=== PATIENT | female | born 1940 | race Caucasian/White ===

== ENCOUNTER 2016-12-14 13:07 | Inpatient (IN) | payer MEDICARE, OTHER ==
[~2016-12-14 13:07] MED LIST: BAYER81 MG PO; CALCIUM; CALCIUM 600 W/V1 TAB; CALCIUM 600 W/V1 TAB PO; CARDIZEM LA240 MG; COATED ASPIRIN325 M1 PO; COMPAZINE10 M; DETROL LA4 MG PO; DILAUDID2 MG PO; ECOTRIN325 MG; FOLIC ACID1 MG PO; FOSAMAX70 MG; FOSAMAX70 MG PO; H PO; HYDROCHLOROTHIA25 MG PO; KEPPRA500 M2 PO; LASIX20 MG PO; LEVAQUIN250 MG PO; LISINOPRIL10 MG PO; LOPRESSOR25 MG/TA7 PO; LOW-DOSE ASPIRI81 MG PO; MAGIC MOUTHWASH; MIRALAX17 G1 PO; MULTIVITAMIN1 CAP; MULTIVITAMIN1 TAB PO; NEURONTIN600 MG PO; NEXIUM40 MG PO; NOLVADEX10 MG PO; NORCO 5/325 TAB1 TAB PO; NORCO 7.5/325 T1 TAB; NORCO 7.5/3251 TAB PO; OS-CAL 500500 MG/TA1 PO; PERCOCET 5/3251 TAB PO; PRILOSEC40 MG; SKELAXIN800 MG; SODIUM BICARBO650 MG PO; TAMOXIFEN CITRA10 MG PO; TENORMIN50 MG PO; TYLENOL EXTRA500 MG; TYLENOL W/CODEI1 TAB; TYLENOL500 MG PO; UNKNOWN ANTIBIOTIC; VITAMIN D-32000 UNIT PO; ZOCOR10 MG PO; ZOFRAN ODT8 MG/TAB
[2016-12-14 13:45] LABS: BASO % 0.1 % (0-2); HCT-HEMATOCRIT 29.5 % (34.0-49.0); HGB-HEMOGLOBIN 9.6 gm/dl (12.0-15.5); IMMATURE GRANULOCYTES ABSOLUTE 0.03 tho/cmm (0-0.03); IMMATURE GRANULOCYTES PERCENT 0.3 % (0-0.3); LYMPH % 15.2 % (20-45); LYMPH ABSOLUTE COUNT 1.5 tho/cmm (0.8-4.5); MCH (MEAN CORPUSCULAR HGB) 31.9 pg (28.0-32.0); MCHC MEAN CORPUSCULAR HGB CONC 32.5 % (32.0-36.0); MEAN PLATELET VOLUME 9.4 cmc (9.4-12.4); MONO % 4.6 % (0-12); MONOCYTE ABSOLUTE COUNT 0.5 tho/cmm (0.0-1.2); NEUTROPHILS % 79.8 % (40-80); PLATELET COUNT 217 tho/cmm (150-450); RED BLOOD COUNT 3.01 mil/cmm (4.00-5.20); RED CELL DISTRIBUTION WIDTH 14.1 % (12.4-16.4)
[2016-12-14 13:46] LABS: CARBON DIOXIDE-VENOUS 22 mmol/L (21-33); CREATININE 1.47 mg/dl (0.67-1.17); GLUCOSE 119 mg/dl (65-120); POTASSIUM 4.2 mmol/L (3.5-5.3); SODIUM 140 mmol/L (135-146); eGFR VALUE FOR BLACK 42 mL/Min
[2016-12-14] MEDS ORDERED: VITAMIN D32000 UNI2 PO (13:52)
[2016-12-14] MEDS ORDERED: CITRACAL + D M1 EAC1 PO (13:53)
[2016-12-14] MEDS ORDERED: CYMBALTA60 M1 PO (13:54)
[2016-12-14] MEDS ORDERED: TEARS NATURALE15 M1 OP (13:54)
[2016-12-14] MEDS ORDERED: ARIMIDEX1 M1 PO (13:54)
[2016-12-14] MEDS ORDERED: HYDROCHLOROTH12.5 M2 PO (13:55)
[2016-12-14] MEDS ORDERED: PRINIVIL10 M1 PO (13:55)
[2016-12-14 13:56] LABS: URINE BILIRUBIN NEGATIVE (NEG); URINE BLOOD NEGATIVE (NEG); URINE GLUCOSE (UA) NEGATIVE (NEG); URINE KETONE NEGATIVE (NEG); URINE LEUKOCYTE ESTERASE NEGATIVE (NEG); URINE NITRITE NEGATIVE (NEG)
[2016-12-14] MEDS ORDERED: VENTOLIN HFA18 G2 INH (13:56)
[2016-12-14] MEDS ORDERED: NEXIUM40 M1 PO (13:56)
[2016-12-14 13:57] LABS: URINE APPEARANCE CLEAR; URINE COLOR YELLOW; URINE SPECIFIC GRAVITY 1.014 (1.003-1.030)
[2016-12-14] MEDS ORDERED: KEPPRA500 M3 PO (13:57)
[2016-12-14] MEDS ORDERED: TOPROL XL25 M1 PO (13:58)
[2016-12-14] MEDS ORDERED: [UNRECOGNIZED DRUG - OTHER] PO (13:59)
[2016-12-14] MEDS ORDERED: ONE DAILY FOR1 EAC7 PO (13:59)
[2016-12-14] MEDS ORDERED: ASPIRIN EC81 MG PO (13:59)
[2016-12-14 14:00] LABS: URINE EPITHELIAL CELLS 0 /[HPF] (0-10); URINE PROT SULFOSALICYLIC ACID TRACE (NEG); URINE RBC 0 /[HPF] (0-5); URINE WBC 0 /[HPF] (0-5)
[2016-12-14] MEDS ORDERED: FORTEO2.4 M1 (14:00)
[2016-12-14] MEDS ORDERED: NEURONTIN300 M1 PO (14:01)
[2016-12-14] MEDS ORDERED: OMNIPRED10 M1 OP (14:01)
[2016-12-14 14:15] LABS: ALBUMIN 3.6 g/dl (3.5-5.0); ALKALINE PHOSPHATASE 66 U/L (33-138); ALT/SGPT 14 U/L (12-78); AST/SGOT 19 U/L (10-40); BILIRUBIN,TOTAL 0.6 mg/dl (0-1.5); BLOOD UREA NITROGEN 31 mg/dl (6-24); CALCIUM 9.1 mg/dl (8.5-10.5); CHLORIDE 109 mmol/l (96-110)
[2016-12-14 14:20] LABS: ANION GAP 13 mmol/L (0-20)
[2016-12-14] MEDS ORDERED: FOLIC ACID0.4 M1 PO (15:06)
[2016-12-14] MEDS ORDERED: ARANESP200 MCG/1 SC (15:06)
[2016-12-14] MEDS ORDERED: TYLENOL EXTRA500 M1 PO (15:12)
[2016-12-14] MEDS ORDERED: PROCRIT40000 UNIT SC (15:22)
[2016-12-14 16:52] LABS: PROCALCITONIN 0.11 ng/ml (0.05-0.09)
[2016-12-15 05:35] LABS: ANION GAP 14 mmol/L (0-20); BLOOD UREA NITROGEN 35 mg/dl (6-24); CALCIUM 8.6 mg/dl (8.5-10.5); CARBON DIOXIDE-VENOUS 23 mmol/L (22-32); CHLORIDE 109 mmol/l (96-110); CREATININE 1.59 mg/dl (0.50-1.10); GLUCOSE 88 mg/dL (70-110); POTASSIUM 4.2 mmol/L (3.7-5.1); SODIUM 142 mmol/L (135-145); eGFR VALUE FOR BLACK 38 mL/Min
[2016-12-15 07:13] LABS: BASO % 0.1 % (0-2); HCT-HEMATOCRIT 28.4 % (34.0-49.0); IMMATURE GRANULOCYTES ABSOLUTE 0.05 tho/cmm (0-0.03); IMMATURE GRANULOCYTES PERCENT 0.5 % (0-0.3); LYMPH % 23.3 % (20-45); LYMPH ABSOLUTE COUNT 2.3 tho/cmm (0.8-4.5); MCH (MEAN CORPUSCULAR HGB) 31.4 pg (28.0-32.0); MCHC MEAN CORPUSCULAR HGB CONC 31.7 % (32.0-36.0); MEAN PLATELET VOLUME 9.6 cmc (9.4-12.4); MONOCYTE ABSOLUTE COUNT 0.9 tho/cmm (0.0-1.2); NEUTROPHIL ABSOLUTE COUNT 6.5 tho/cmm (1.6-8.0); NEUTROPHIL-AUTOMATED 6.5 tho/cmm (1.6-8.0); NEUTROPHILS % 67.1 % (40-80); PLATELET COUNT 212 tho/cmm (150-450); RED BLOOD COUNT 2.87 mil/cmm (4.00-5.20); RED CELL DISTRIBUTION WIDTH 14.1 % (12.4-16.4); WHITE BLOOD COUNT 9.8 tho/cmm (4.0-10.0)
[2016-12-15 07:21] LABS: PROCALCITONIN 0.13 ng/ml (0.05-0.09)
[2016-12-16 05:16] LABS: ANION GAP 12 mmol/L (0-20); BLOOD UREA NITROGEN 42 mg/dl (6-24); CALCIUM 8.7 mg/dl (8.5-10.5); CARBON DIOXIDE-VENOUS 26 mmol/L (22-32); CHLORIDE 112 mmol/l (96-110); CREATININE 1.87 mg/dl (0.50-1.10); GLUCOSE 91 mg/dL (70-110); POTASSIUM 4.1 mmol/L (3.7-5.1); SODIUM 146 mmol/L (135-145); eGFR VALUE FOR BLACK 32 mL/Min
[2016-12-16 05:29] LABS: PLATELET COUNT 182 tho/cmm (150-450)
[2016-12-18 04:50] LABS: HGB-HEMOGLOBIN 8.7 gm/dl (12.0-15.5); PLATELET COUNT 204 tho/cmm (150-450)
[2016-12-18 17:51] LABS: MAGNESIUM 1.7 mg/dl (1.3-2.6); PHOSPHOROUS 2.9 mg/dl (2.5-4.9)
[2016-12-19] MEDS ORDERED: TYLENOL325 M2 PO (12:39)
[2016-12-19] MEDS ORDERED: BACITRACIN28.4 G2 TOP (12:43)
[2016-12-19] MEDS ORDERED: NORVASC5 M2 PO (12:45)
== END 2016-12-19 16:20 | disposition home health service (06) | DRG 57 ==
LOC: EDMED 13:07 → EMR2 17:18 → 5WD 19:09
PROVIDERS: Emergency Medicine; Hospitalist; Internal Medicine; Psychiatry & Neurology Neurology; ADMIT Family Medicine
PROC: 3E0F7GC Introduction of Other Therapeutic Substance into Respiratory Tract, Via Natural or Artificial Opening (ICD-10-PCS; principal; 2016-12-14)
PROC: 05HC33Z Insertion of Infusion Device into Left Basilic Vein, Percutaneous Approach (ICD-10-PCS; 2016-12-16)
PROC: B54NZZA Ultrasonography of Left Upper Extremity Veins, Guidance (ICD-10-PCS; 2016-12-16)
DX: G30.9 Alzheimer's disease, unspecified (principal); E86.0 Dehydration; N18.3 Chronic kidney disease, stage 3 (moderate); F02.80 Dementia in other diseases classified elsewhere, unspecified severity, without behavioral disturbance, psychotic disturbance, mood disturbance, and anxiety; E04.1 Nontoxic single thyroid nodule; E55.9 Vitamin D deficiency, unspecified; E78.5 Hyperlipidemia, unspecified; G40.909 Epilepsy, unspecified, not intractable, without status epilepticus; I12.9 Hypertensive chronic kidney disease with stage 1 through stage 4 chronic kidney disease, or unspecified chronic kidney disease; K21.9 Gastro-esophageal reflux disease without esophagitis; K52.9 Noninfective gastroenteritis and colitis, unspecified; M54.9 Dorsalgia, unspecified; M81.0 Age-related osteoporosis without current pathological fracture; R29.6 Repeated falls; S61.502A Unspecified open wound of left wrist, initial encounter; Z51.5 Encounter for palliative care
CPT/HCPCS: C1751; J1630; J1650; J1956; J3370; J7030; P9612

== ENCOUNTER 2017-03-23 10:14 | Emergency (ER) | payer MEDICARE, OTHER ==
[~2017-03-23 10:14] MED LIST changes: +ARANESP200 MCG/1 SC; +ARIMIDEX1 M1 PO; +ASPIRIN EC81 MG PO; +BACITRACIN28.4 G2 TOP; +CITRACAL + D M1 EAC1 PO; +CYMBALTA60 M1 PO; +FOLIC ACID0.4 M1 PO; +FORTEO2.4 M1; +HYDROCHLOROTH12.5 M2 PO; +KEPPRA500 M3 PO; +NEURONTIN300 M1 PO; +NEXIUM40 M1 PO; +NORVASC5 M2 PO; +OMNIPRED10 M1 OP; +ONE DAILY FOR1 EAC7 PO; +PRINIVIL10 M1 PO; +PROCRIT40000 UNIT SC; +TEARS NATURALE15 M1 OP; +TOPROL XL25 M1 PO; +TYLENOL EXTRA500 M1 PO; +TYLENOL325 M2 PO; +VENTOLIN HFA18 G2 INH; +VITAMIN D32000 UNI2 PO; +[UNRECOGNIZED DRUG - OTHER] PO
[2017-03-23] MEDS ORDERED: NORCO 5-325 TA1 EACH PO (14:33)
== END 2017-03-23 14:59 ==
LOC: EDMED 10:14
DX: S22.42XA Multiple fractures of ribs, left side, initial encounter for closed fracture (principal); F03.90 Unspecified dementia, unspecified severity, without behavioral disturbance, psychotic disturbance, mood disturbance, and anxiety; Z79.899 Other long term (current) drug therapy; W19.XXXA Unspecified fall, initial encounter; Y92.010 Kitchen of single-family (private) house as the place of occurrence of the external cause